=== PATIENT | female | born 1985 | race Caucasian/White ===

== ENCOUNTER 2019-08-21 10:30 | Emergency (ER) | payer OTHER, SELFPAY ==
--- NOTE | 2019-08-21 10:47 | ED.URI ---
HPI - URI/Sore Throat General Chief Complaint: Upper Respiratory Infection Stated Complaint: cough/sob/chest pain Time Seen by Provider: 08/21/19 10:47 Source: patient and RN notes reviewed History of Present Illness HPI Narrative: Patient is a 34-year-old female that presents the urgent care with complaints of a cough and some intermittent shortness of breath since last Wednesday. Patient states she is developed a green postnasal drainage with rhinorrhea and dry cough. Patient states that originally started out with a sore throat but denies sore throat at this time. Patient denies chest pain. Reports of no fevers, nausea, vomiting. Has been using ibuprofen without much relief. Patient appears slightly anxious. No other acute complaints. No acute distress noted. Patient had a plan of care. Related Data Home Medications Medication Instructions Recorded Confirmed ibuprofen 200 mg PO Q6H PRN 08/21/19 08/21/19 Allergies Allergy/AdvReac Type Severity Reaction Status Date / Time No Known Allergies Allergy Verified 08/21/19 10:55 Review of Systems Review of Systems: Narrative: CONSTITUTIONAL: Denies fever, chills, or sweats. EYES: Denies visual changes, redness, or discharge. ENT: Reports of rhinorrhea, postnasal drainage CARDIOVASCULAR: Denies chest pain, palpitations, or edema. RESPIRATORY: Reports of nonproductive cough with intermittent dyspnea, denies wheezing GASTROINTESTINAL: Denies abdominal pain, nausea, vomiting, or diarrhea. GENITOURINARY: Denies dysuria or hematuria. SKIN: Denies rash or itching. MUSCULOSKELETAL: Denies back pain, joint pain, or myalgia. NEUROLOGIC: Denies headache, numbness, or weakness. PMFSH Family History Family History (Updated 06/01/18 @ 11:05 by DOCTOR UNKNOWN) Sibling Family history of thyroid disease Father Family history of blood dyscrasia Family history of gastrointestinal disorder Family history of liver disease Social History Social History Smoking status: Heavy tobacco smoker Alcohol intake: current Comments At the time of my signature, I reviewed and agree with the nursing past medical, surgical, social, and family history. There is no relevant family history pertinent to the patient complaint. Exam Narrative: Exam Narrative: GENERAL: This is a well-nourished, well-developed patient, in no apparent distress. HEAD: normocephalic, atraumatic. EYES: PERRL. Sclera clear/white. Vision is grossly intact. EARS: External ears normal, auditory canals clear and without drainage, TMs normal without perforation. Hearing grossly intact. NOSE: External nose normal with no obvious nasal discharge, nares without redness, no rhinorrhea. THROAT: Mucous membranes moist, posterior pharynx clear. Moderate postnasal drainage NECK: Neck supple CARDIOVASCULAR: Regular rate and rhythm without murmurs, gallops, or rubs. RESPIRATORY: Clear to auscultation. Breath sounds equal bilaterally. No wheezes, rales, or rhonchi. Cough noted with deep breathing SKIN: warm, intact with no suspicious lesions or rash, good texture and turgor. NEURO: awake, alert, and oriented to person, place and time. There were no obvious focal neurologic abnormalities. EXTREMITIES: No clubbing, cyanosis, or edema. Course Vital Signs Vital signs: Vital Signs Temperature 97.4 F L 08/21/19 10:48 Pulse Rate 95 08/21/19 10:48 Respiratory Rate 20 08/21/19 10:48 Blood Pressure 123/83 08/21/19 10:48 Pulse Oximetry 100 08/21/19 10:48 Temperature 97.4 F L 08/21/19 10:48 Pulse Rate 95 08/21/19 10:48 Respiratory Rate 20 08/21/19 10:48 Blood Pressure 123/83 08/21/19 10:48 Pulse Oximetry 100 08/21/19 10:48 Reviewed MDM - URI/Sore Throat MDM Narrative Medical decision making narrative: Advised the patient to use Claritin and Flonase [id number] for symptom relief. May use Mucinex as needed. Increase water intake and rest. Use humidifier at night. Take Tylenol/ibuprofen
[2019-08-21 10:48] VITALS: BP 123/83; PULSE 95; RESP 20; TEMP 36.3; O2SAT 100
== END 2019-08-21 11:11 | disposition home or self-care (01) ==
PROVIDERS: Emergency Provider Nurse Practitioner Family; PCP Internal Medicine
DX: J06.9 Acute upper respiratory infection, unspecified (principal); F17.200 Nicotine dependence, unspecified, uncomplicated
CPT/HCPCS: 99213; G0463

== ENCOUNTER 2020-04-07 09:55 | Emergency (ER) | payer OTHER, SELFPAY ==
[2020-04-07 10:03] VITALS: BP 126/83; PULSE 99; RESP 16; TEMP 36.5; O2SAT 100
--- NOTE | 2020-04-07 10:19 | ED.SKABFB ---
HPI - Skin/Abscess/Foreign Bdy General Chief complaint: Skin/Abscess/Foreign Body Stated complaint: Possible infection Time Seen by Provider: 04/07/20 10:11 Source: patient and RN notes reviewed Mode of arrival: ambulatory Limitations: no limitations History of Present Illness HPI narrative: Patient presents today with a 3-week history of pruritic rash to the left neck. Patient has been applying Benadryl cream without relief. She does report some mild intermittent pain as well. States she became concerned because her pet was recently diagnosed with hookworms and she was having a discussion with her vet, who told her to come in for evaluation for possible hookworms. Patient denies any additional symptoms. MD complaint: rash Related Data Home Medications Medication Instructions Recorded Confirmed Zyrtec 10 mg PO DAILY 04/07/20 04/07/20 Allergies Allergy/AdvReac Type Severity Reaction Status Date / Time No Known Allergies Allergy Verified 04/07/20 10:02 Review of Systems Review of Systems: Narrative: CONSTITUTIONAL: Denies body aches, fever, chills, or sweats. EYES: Denies visual changes, redness, or discharge. ENT: Denies rhinorrhea, congestion, sore throat, or otalgia. CARDIOVASCULAR: Denies chest pain, palpitations, or edema. RESPIRATORY: Denies cough or dyspnea. GASTROINTESTINAL: Denies abdominal pain, nausea, vomiting, or diarrhea. GENITOURINARY: Denies dysuria or hematuria. SKIN: Denies wounds. + Rash to neck MUSCULOSKELETAL: Denies back pain, joint pain, or myalgia. NEUROLOGIC: Denies headache, numbness, tingling, or weakness. PSYCH: Denies depression or anxiety. PMFSH Family History Family History (Updated 06/01/18 @ 11:05 by DOCTOR UNKNOWN) Sibling Family history of thyroid disease Father Family history of blood dyscrasia Family history of gastrointestinal disorder Family history of liver disease Social History Social History Smoking status: Heavy tobacco smoker Alcohol intake: current Comments At time of signature, I have reviewed and agree with nursing past medical, surgical, social and family history unless otherwise noted. Please see nursing chart for further information. There is no relevant family history pertinent to the presenting complaint Exam Narrative: Exam Narrative: GENERAL: Well-appearing, well-nourished, and in no acute distress. HEAD: Normocephalic, atraumatic. EYES: EOMI. No redness or drainage. Conjunctivae normal. ENT: Mucous membranes pink and moist. NECK: Normal AROM. Supple. No lymphadenopathy. Approx 4x4 cm area with scattered macular papular, scaly lesions, some are faintly pink. No erythema, induration, drainage, fluctuance noted. CHEST: No respiratory distress. Clear to auscultation. HEART: Regular rate and rhythm. EXTREMITIES: Normal range of motion. No edema. SKIN: Warm, dry. Capillary refill normal. Normal skin turgor. NEURO: No focal deficits. Alert and oriented x3. Gait steady. PSYCH: Normal affect. No signs of depression or anxiety. Course Course Emergency Course: Rash possibly resemble some tinea. We will have her treat for tinea infection, but due to exposure to hookworms, will treat with a one-time dose of albendazole. Patient has been instructed to follow-up with her PCP if rash does not resolve. Vital Signs Vital signs: Vital Signs Temperature 97.7 F 04/07/20 10:03 Pulse Rate 99 04/07/20 10:03 Respiratory Rate 16 04/07/20 10:03 Blood Pressure 126/83 04/07/20 10:03 Pulse Oximetry 100 04/07/20 10:03 Temperature 97.7 F 04/07/20 10:03 Pulse Rate 99 04/07/20 10:03 Respiratory Rate 16 04/07/20 10:03 Blood Pressure 126/83 04/07/20 10:03 Pulse Oximetry 100 04/07/20 10:03 Reviewed. Pt has been instructed to follow up with her PCP regarding her elevated blood pressure today. MDM - Skin/Abscess/Foreign Bdy Differential Diagnosis Differential diagnosis: Likely abscess of skin or subcutaneous tiss
== END 2020-04-07 10:35 | disposition home or self-care (01) ==
PROVIDERS: Emergency Provider Nurse Practitioner; PCP Internal Medicine
DX: R21 Rash and other nonspecific skin eruption (principal)
CPT/HCPCS: 99213; G0463

== ENCOUNTER 2021-11-30 12:53 | Emergency (ER) | payer OTHER, SELFPAY ==
[2021-11-30 13:31] VITALS: BP 123/85; PULSE 108; RESP 16; TEMP 36.2; O2SAT 100
--- NOTE | 2021-11-30 14:20 | ED.GENADULT ---
HPI - General Adult General Chief complaint: Dental/Oral Stated complaint: tooth inf Source: patient Mode of arrival: ambulatory Limitations: no limitations History of Present Illness HPI narrative: Patient presents for evaluation of left lower dental pain. She indicates approximately 1 month ago she fractured left lower molar. She did not experience any discomfort at the time so she did not seek medical attention. The last 48 hours she has developed a throbbing pain rated 7 out of 10 in severity in the left lower jaw. She reports left-sided cervical lymphadenopathy. No fever, chills, nausea, vomiting. She took 1 dose of 800 mg Advil without considerable improvement in her pain thereafter. She did not take any further medication as she did not think it would be effective. She is not diabetic. She does smoke about 1 ppd. No additional complaints or concerns. Related Data Allergies Allergy/AdvReac Type Severity Reaction Status Date / Time cephalexin [From Keflex] Allergy Hives Verified 11/30/21 13:29 Review of Systems Review of Systems: CONSTITUTIONAL: Denies fever, chills, or sweats. EYES: Denies visual changes, redness, or discharge. ENT: Reports left lower dental pain, left jaw pain and left cervical lymphadenopathy CARDIOVASCULAR: Denies chest pain, palpitations, or edema. RESPIRATORY: Denies cough or dyspnea. GASTROINTESTINAL: Denies abdominal pain, nausea, vomiting, or diarrhea. GENITOURINARY: Denies dysuria or hematuria. SKIN: Denies rash or itching. MUSCULOSKELETAL: Denies back pain, joint pain, or myalgia. NEUROLOGIC: Denies headache, numbness, dizziness, or weakness. PSYCHIATRIC: Denies anxiety or depression. [facility] Past Medical History Medical History Abnormal Pap smear of cervix (08/11/19) 08/11/2019 Ascus -Hpv Ovarian cyst bleeding Tooth fracture Surgical History Surgical History H/O LEEP (~2000) cervical dysplasia History of ovarian cystectomy (~1998) right oopherectomy Family History Family History Sibling Family history of thyroid disease Father Family history of blood dyscrasia Family history of gastrointestinal disorder Family history of liver disease Social History Social History Smoking packs per day: 1 Smoking cigarettes per day: 20.0 Smoking status: Heavy tobacco smoker Alcohol intake: current Substance use: never Living arrangements: with family Gender identity (if verbalized by the patient): Female Spiritual care concerns: No Exam Narrative: GENERAL: Well-appearing, well-nourished, and in no acute distress. HEAD: Normocephalic, atraumatic. EYES: PERRLA and EOMI. ENT: Nares clear, no rhinorrhea or epistaxis. Mucous membranes moist. Oropharynx without tonsillar hypertrophy exudate or other lesions. Overall poor dentition. Multiple fillings are present. There is a fracture of tooth #19. There is no visible or palpable abscess. No trismus. Bilateral TMs pearly mena nonbulging NECK: Supple. No adenopathy or masses. No carotid bruits or JVD CHEST: Clear to auscultation. No respiratory distress. No wheezes rales or rhonchi HEART: Regular rate and rhythm. No murmur heard. Normal peripheral pulses. ABDOMEN: Soft, nontender, nondistended, normal active bowel sounds. EXTREMITIES: Normal range of motion. No edema. SKIN: Warm, dry, no rash. NEURO: No focal deficits. Alert and oriented x3. PSYCH: Normal mood and affect. Course Course Emergency Course: This is a 36-year-old female who presented with complaints of left lower dental pain. She will continue NSAIDS for pain and will add PCN v k and tylenol with codeine as needed. She plans to call a dentist tomorrow. She should go to ER for intractable pain or decline
== END 2021-11-30 14:25 | disposition home or self-care (01) ==
PROVIDERS: Emergency Provider Nurse Practitioner; PCP Internal Medicine
DX: S02.5XXA Fracture of tooth (traumatic), initial encounter for closed fracture (principal); F17.210 Nicotine dependence, cigarettes, uncomplicated; X58.XXXA Exposure to other specified factors, initial encounter
CPT/HCPCS: 99213; G0463

== ENCOUNTER 2022-06-02 13:22 | Emergency (ER) | payer OTHER, SELFPAY ==
--- NOTE | 2022-06-02 13:24 | ED.URI ---
HPI - URI/Sore Throat General Chief Complaint: Upper Respiratory Infection Stated Complaint: ear pain, cough, congestion Time Seen by Provider: 06/02/22 13:24 Source: patient Mode of arrival: ambulatory Limitations: no limitations History of Present Illness HPI Narrative: Ms Zepeda is a 37-year-old female patient presenting to clinic today with complaints of cough, nasal congestion, and ear pain times 23 days. She reports she has had ongoing cold symptoms over 23 days. She reports she does have headaches, green nasal drainage, nonproductive cough, and bilateral ear pain. She denies any fever or chills MD elicited complaint: cough, rhinorrhea, nasal congestion and other (Ear pain) Related Data Allergies Allergy/AdvReac Type Severity Reaction Status Date / Time cephalexin [From Keflex] Allergy Hives Verified 11/30/21 13:29 Review of Systems Review of Systems: Pertinent positives per HPI. Patient denies any fever, chills, rash, headache, visual changes, dizziness, cough, shortness of breath, chest pain, palpitations, nausea, vomiting, diarrhea, constipation, abdominal pain, or any urinary issues. [facility] Past Medical History Medical History Abnormal Pap smear of cervix (08/11/19) 08/11/2019 Ascus -Hpv Ovarian cyst bleeding Tooth fracture Surgical History Surgical History H/O LEEP (~2000) cervical dysplasia History of ovarian cystectomy (~1998) right oopherectomy Family History Family History Sibling Family history of thyroid disease Father Family history of blood dyscrasia Family history of gastrointestinal disorder Family history of liver disease Social History Social History Smoking packs per day: 1 Smoking cigarettes per day: 20.0 Smoking status: Heavy tobacco smoker Alcohol intake: current Substance use: never Gender identity (if verbalized by the patient): Female Spiritual care concerns: No Comments At the time of my signature, I reviewed and agree with the nursing past medical, surgical, social, and family history. There is no relevant family history pertinent to the patient complaint. Exam Narrative: General: Well-developed, well nourished, in no apparent distress Head: Normocephalic, atraumatic Eyes: Pupils equally round and reactive to light bilaterally, EOM intact, sclera and conjunctive clear, no discharge, lids normal Ears: TMs intact and clear, ear canals clear, no drainage, grossly hearing normal. Nose: Nares patent, green discharge, moderate to severe inflammation, maxillary and frontal sinus tenderness. Mouth: Oral pharynx without lesions or masses, good dentition, MMM. Postnasal drip Neck: Supple, trachea midline, no enlargement of anterior or posterior cervical nodes, no thyroid masses or goiter palpable. Cardio: Regular rate and rhythm, s1 and s2 normal, no murmur appreciated. Resp: Clear to auscultation bilaterally, no rhonchi, rales, wheezing or rubs Course Course Emergency Course: Portions of this record may have been created with voice recognition software. Level of Care: Express Care Visit Vital Signs Vital signs: Vital signs reviewed MDM - URI/Sore Throat MDM Narrative Medical decision making narrative: At the time of visit patient is resting comfortably on the exam table. I suspect patient has acute bacterial rhinosinusitis. Prescription for Augmentin and prednisone was sent to the pharmacy. Supportive measures were discussed with the patient and she voiced understanding of discharge instructions and agrees to treatment plan. Differential Diagnosis Differential diagnosis: Likely upper respiratory infection, otitis media, sinusitis, viral infection, bronchitis, influenza, pharyngitis and other
[2022-06-02 13:31] VITALS: BP 119/89; PULSE 100; RESP 16; TEMP 36.6; O2SAT 99
== END 2022-06-02 13:42 | disposition home or self-care (01) ==
PROVIDERS: Emergency Provider Nurse Practitioner Family; PCP Family Medicine
DX: J01.90 Acute sinusitis, unspecified (principal); F17.219 Nicotine dependence, cigarettes, with unspecified nicotine-induced disorders
CPT/HCPCS: 99213; G0463

== ENCOUNTER 2022-09-11 16:33 | Emergency (ER) | payer OTHER, SELFPAY ==
[2022-09-11 16:53] VITALS: BP 115/89; PULSE 92; RESP 16; TEMP 36.4; O2SAT 100
--- NOTE | 2022-09-11 17:12 | ED.URI ---
HPI - URI/Sore Throat General Chief Complaint: Upper Respiratory Infection Stated Complaint: SORE THROAT Time Seen by Provider: 09/11/22 17:12 Source: patient, RN notes reviewed and old records reviewed Mode of arrival: ambulatory Limitations: no limitations History of Present Illness HPI Narrative: 37 year old female who presents to express care with complaints of sore throat, red blisters in throat, headache, nasal congestion and drainage since yesterday.Patient reports that she has not had any fevers. Patient reports that her son is also ill with sore throat and to be seen also today. Patient reports that she has been taking Zyrtec and also some Ibuprofen for her symptoms. MD elicited complaint: sore throat, rhinorrhea and nasal congestion Onset (ago): day(s) (1) Pain scale (0-10): 2 Treatments prior to arrival: ibuprofen Related Data Home Medications Medication Instructions Recorded Confirmed cetirizine 10 mg tablet (Zyrtec) 10 mg PO DAILY 09/11/22 09/11/22 Allergies Allergy/AdvReac Type Severity Reaction Status Date / Time cephalexin [From Keflex] Allergy Intermediate Hives Verified 09/11/22 16:47 Review of Systems Review of Systems: CONSTITUTIONAL: Denies malaise, chills, sweats, or fever. EYES: Denies visual changes, redness, or discharge. ENT: Reports rhinorrhea, congestion,no sinus pain,no otalgia, positive for sore throat. CARDIOVASCULAR: Denies chest pain, palpitations, or edema. RESPIRATORY: Reports no cough.? Denies dyspnea. GASTROINTESTINAL: Denies abdominal pain, nausea, vomiting, diarrhea SKIN: Denies rash or itching. MUSCULOSKELETAL: Denies myalgia. NEUROLOGIC:Reports headache. All systems reviewed & are unremarkable except as noted in HPI and below PMFSH Past Medical History Medical History Abnormal Pap smear of cervix (08/11/19) 08/11/2019 Ascus -Hpv Ovarian cyst bleeding Tooth fracture Surgical History Surgical History H/O LEEP (~2000) cervical dysplasia History of ovarian cystectomy (~1998) right oopherectomy Family History Family History Sibling Family history of thyroid disease Father Family history of blood dyscrasia Family history of gastrointestinal disorder Family history of liver disease Social History Social History Smoking packs per day: 0.5 Smoking cigarettes per day: 10.0 Smoking status: Current some day smoker Alcohol intake: current Substance use: never Living arrangements: with family Gender identity (if verbalized by the patient): Female Spiritual care concerns: No Comments At time of signature, agree with nursing past medical, surgical, social and family history. There is no relevant family history pertinent to the presenting complaint Exam Narrative: GENERAL: Well-appearing, well-nourished, and in no acute distress. HEAD: Normocephalic EYES: PERRLA, conjunctivae clear ENT: Nares clear, turbinates edematous and erythematous, clear discharge. Mucous membranes moist. TM pearly mena with dull light reflex bilaterally; no tragal tenderness. Oropharynx erythematous without lesions. Tonsils not enlarged and without exudate,throat bright red in appearance and states painful, no drooling, no hoarseness, no trismus, uvula midline. reports painful swallowing. NECK: Supple. lymphadenopathy CHEST: Clear to auscultation, breath sounds equal. No wheezing, rhonchi, rales, or stridor. No respiratory distress, speaks in full sentences.SAO2 100% on room air HEART: Regular rate and rhythm. No murmur heard. SKIN: Warm, dry, no rash. NEURO: Alert and oriented x3. PSYCH: Normal mood and affect Course Course Emergency Course: Patient is aware of diagnosis, understands and agrees to treatment plan.?
== END 2022-09-11 17:37 | disposition home or self-care (01) ==
PROVIDERS: Emergency Provider Registered Nurse; PCP Family Medicine
DX: J06.9 Acute upper respiratory infection, unspecified (principal); J02.9 Acute pharyngitis, unspecified; Z20.818 Contact with and (suspected) exposure to other bacterial communicable diseases; F17.210 Nicotine dependence, cigarettes, uncomplicated
CPT/HCPCS: 87081; 87880; 99213; G0463

== ENCOUNTER 2022-10-13 12:35 | Emergency (ER) | payer OTHER, SELFPAY ==
--- NOTE | 2022-10-13 12:45 | ED.URI ---
HPI - URI/Sore Throat General Chief Complaint: Upper Respiratory Infection Stated Complaint: sore throat Source: patient and RN notes reviewed History of Present Illness HPI Narrative: 27-year-old male presents urgent care with complaints of a sore throat since last night. 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 Patient denies any fevers, chills, ear pain, abdominal pain, or cough. Some parts of this dictation were generated by voice recognition software and may contain typographical and/or grammatical inaccuracies. Related Data Home Medications Medication Instructions Recorded Confirmed cetirizine 10 mg tablet (Zyrtec) 10 mg PO DAILY 09/11/22 09/11/22 Allergies Allergy/AdvReac Type Severity Reaction Status Date / Time cephalexin [From Keflex] Allergy Intermediate Hives Verified 09/11/22 16:47 Review of Systems Review of Systems: Pertinent positives and pertinent negatives per HPI. PMFSH Past Medical History Medical History Abnormal Pap smear of cervix (08/11/19) 08/11/2019 Ascus -Hpv Ovarian cyst bleeding Tooth fracture Surgical History Surgical History H/O LEEP (~2000) cervical dysplasia History of ovarian cystectomy (~1998) right oopherectomy Family History Family History Sibling Family history of thyroid disease Father Family history of blood dyscrasia Family history of gastrointestinal disorder Family history of liver disease Social History Social History Smoking packs per day: 0.5 Smoking cigarettes per day: 10.0 Smoking status: Current some day smoker Alcohol intake: current Substance use: never Living arrangements: with family Gender identity (if verbalized by the patient): Female Spiritual care concerns: No Comments At the time of my signature, I reviewed and agree with the nursing past medical, surgical, social, and family history. There is no relevant family history pertinent to the patient complaint. Exam Narrative: GENERAL: This is a well-nourished, well-developed patient, in no apparent distress. HEAD: normocephalic, atraumatic. EYES: PERRL. Sclera clear/white. Vision is grossly intact. EARS: External ears normal, auditory canals clear and without drainage, TMs normal without perforation. Hearing grossly intact. NOSE: External nose normal with no obvious nasal discharge, nares without redness, no rhinorrhea. THROAT: Mucous membranes moist, posterior pharynx clear. NECK: Neck supple, non-tender without lymphadenopathy, masses or thyromegaly. CARDIOVASCULAR: Regular rate RESPIRATORY: no respiratory distress SKIN: warm, intact with no suspicious lesions or rash, good texture and turgor. NEURO: awake, alert, and oriented to person, place and time. There were no obvious focal neurologic abnormalities. Course Course Level of Care: Express Care Visit Vital Signs Vital signs: reviewed MDM - URI/Sore Throat MDM Narrative Medical decision making narrative: Rapid strep is negative in the office; however we will send to the lab for confirmation; there is a small percentage chance that it can come back positive; if it is, we will call you in 2-3days; and your prescription will be call in to your pharmacy. However, there is NO indication for antibiotic at this time. -Increase your fluids and Vitamin C. -Oral rinses such as: Salt water gargles and/or may use topical anesthetic (eg. Chloraseptic spray) or lozenges to relieve dryness or throat pain. -Take tylenol and ibuprofen as needed for pain and fever as directed. 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 -Follow up with primary care provider in 2-3 days if condition is not improving
[2022-10-13 13:34] VITALS: BP 114/91; PULSE 96; RESP 16; TEMP 36.6; O2SAT 99
== END 2022-10-13 13:05 | disposition home or self-care (01) ==
PROVIDERS: Emergency Provider Nurse Practitioner Family; PCP Family Medicine
DX: J02.9 Acute pharyngitis, unspecified (principal); F17.210 Nicotine dependence, cigarettes, uncomplicated
CPT/HCPCS: 87081; 87880; 99213; G0463

== ENCOUNTER 2023-07-02 13:30 | Emergency (ER) | payer OTHER, SELFPAY ==
[2023-07-02 13:36] VITALS: BP 122/85; PULSE 89; RESP 16; TEMP 36.8; O2SAT 99
--- NOTE | 2023-07-02 13:41 | ED.URI ---
HPI - URI/Sore Throat General Chief Complaint: Upper Respiratory Infection Stated Complaint: Sinus Problems Time Seen by Provider: 07/02/23 13:45 Source: patient and RN notes reviewed Mode of arrival: ambulatory Limitations: no limitations History of Present Illness HPI Narrative: 38-year-old female presents with concern for right ear pain, sinus pain, dental pain on the right side. She reports her symptoms started yesterday. She denies nasal drainage, sore throat, fever, aches, chills, sweats. Reports 4 days ago she was standing kitchen cabinet senna and closed space and did notice and discolored nasal drainage the next day. MD elicited complaint: sinus pain and other (Ear pain) Related Data Allergies Allergy/AdvReac Type Severity Reaction Status Date / Time cephalexin [From Keflex] Allergy Intermediate Hives Verified 03/22/23 10:07 Review of Systems Review of Systems: CONSTITUTIONAL: Denies malaise, chills, sweats, or fever. EYES: Denies visual changes, redness, or discharge. ENT: Denies rhinorrhea and sore throat. Reports right-sided sinus pain, nasal congestion, right-sided dental pain, right ear pain CARDIOVASCULAR: Denies chest pain, palpitations, or edema. RESPIRATORY: Denies cough. Denies dyspnea. GASTROINTESTINAL: Denies abdominal pain, nausea, vomiting, diarrhea SKIN: Denies rash or itching. MUSCULOSKELETAL: Denies myalgia. NEUROLOGIC: Denies headache. All systems reviewed & are unremarkable except as noted in HPI and below PMFSH Past Medical History Medical History Abnormal Pap smear of cervix (08/11/19) 08/11/2019 Ascus -Hpv Ovarian cyst bleeding Tooth fracture Surgical History Surgical History H/O LEEP (~2000) cervical dysplasia History of ovarian cystectomy (~1998) right oopherectomy Family History Family History Sibling Family history of thyroid disease Father Family history of blood dyscrasia Family history of gastrointestinal disorder Family history of liver disease Social History Social History Smoking packs per day: 0.5 Smoking cigarettes per day: 10.0 Smoking status: Current some day smoker Alcohol intake: current Alcohol use details: socially Substance use: never Lack of Transportation: YES Lack of Food: Never True Current Housing: I Have Housing Concerned About Future Housing: No Difficulty Paying Gas/Electric Bills: No Difficulty Paying for Meds: No Currently Unemployed: No Education: Associate Degree Difficulty w/ Childcare or Family Care: No Living arrangements: with family Gender identity (if verbalized by the patient): Female Spiritual care concerns: No Comments At time of signature, agree with nursing past medical, surgical, social and family history. There is no relevant family history pertinent to the presenting complaint Exam Narrative: GENERAL: Well-appearing, well-nourished, and in no acute distress. HEAD: Normocephalic EYES: PERRLA, conjunctivae clear ENT: Nares clear, turbinates edematous and erythematous, right sinus tenderness. Mucous membranes moist. Right TM pearly mena with dull light reflex, left TM with sharp reflex; no tragal tenderness. Oropharynx not erythematous without lesions. Tonsils not enlarged and without exudate, no drooling, no hoarseness, no trismus, uvula midline. NECK: Supple. No lymphadenopathy CHEST: Clear to auscultation, breath sounds equal. No wheezing, rhonchi, rales, or stridor. No respiratory distress, speaks in full sentences. HEART: Regular rate and rhythm. No murmur heard. SKIN: Warm, dry, no rash. NEURO: Alert and oriented x3. PSYCH: Normal mood and affect Course Course Emergency Course: Patient is aware of diagnosis, understands and agrees to treat
== END 2023-07-02 13:58 | disposition home or self-care (01) ==
PROVIDERS: Emergency Provider Nurse Practitioner; PCP Emergency Medicine
DX: J32.9 Chronic sinusitis, unspecified (principal); F17.210 Nicotine dependence, cigarettes, uncomplicated
CPT/HCPCS: 99213; G0463

== ENCOUNTER 2023-07-23 12:24 | Emergency (ER) | payer OTHER, SELFPAY ==
[2023-07-23 12:35] VITALS: BP 122/95; PULSE 99; RESP 16; TEMP 36.6; O2SAT 98
--- NOTE | 2023-07-23 12:46 | ED.GENADULT ---
HPI - General Adult General Chief complaint: Upper Respiratory Infection Stated complaint: Cough;Fever Time Seen by Provider: 07/23/23 12:46 Source: patient, RN notes reviewed and old records reviewed Mode of arrival: ambulatory Limitations: no limitations History of Present Illness HPI narrative: 38-year-old female presents to the [facility] with complaints of cough, congestion, fever for 12 days Patient's medical records indicates that she was treated 21 days ago with clindamycin and Medrol Dosepak Patient reports frontal head pain, cough, chest congestion. States all of her kids are sick, so cornetist yesterday was diagnosed with a sinus infection. Reports taking Robitussin Benadryl. Related Data Allergies Allergy/AdvReac Type Severity Reaction Status Date / Time cephalexin [From Keflex] Allergy Intermediate Hives Verified 07/23/23 12:57 Review of Systems Review of Systems: All systems reviewed & are unremarkable except as noted in HPI and below Constitutional: Constitutional: Reports no additional constitutional complaints Eyes: Eyes: Reports no additional eye complaints ENT: Reports as per HPI Cardiovascular: Cardiovascular: Reports no additional cardiovascular complaints, Denies chest pain and Denies dyspnea Respiratory: Respiratory: Reports as per HPI, Reports chest congestion, Reports cough and Denies dyspnea Gastrointestinal: Gastrointestinal: Reports no additional gastrointestinal complaints, Denies abdominal pain, Denies nausea and Denies vomiting Musculoskeletal: Musculoskeletal: Reports no additional musculoskeletal complaints Integumentary/Breasts: Skin/Breast: Reports system reviewed and no additional complaints, except as docu Neurologic: Reports system reviewed and no additional complaints, except as documented Psychiatric: Psychiatric: Reports no additional psychiatric complaints Allergic/Immunologic: Allergic/Immunologic: Reports no additional allergic/immunologic complaints [facility] Past Medical History Medical History Abnormal Pap smear of cervix (08/11/19) 08/11/2019 Ascus -Hpv Ovarian cyst bleeding Tooth fracture Surgical History Surgical History H/O LEEP (~2000) cervical dysplasia History of ovarian cystectomy (~1998) right oopherectomy Family History Family History Sibling Family history of thyroid disease Father Family history of blood dyscrasia Family history of gastrointestinal disorder Family history of liver disease Social History Social History Smoking packs per day: 0.5 Smoking cigarettes per day: 10.0 Smoking status: Current some day smoker Alcohol intake: current Alcohol use details: socially Substance use: never Lack of Transportation: YES Lack of Food: Never True Current Housing: I Have Housing Concerned About Future Housing: No Difficulty Paying Gas/Electric Bills: No Difficulty Paying for Meds: No Currently Unemployed: No Education: Associate Degree Difficulty w/ Childcare or Family Care: No Living arrangements: with family Gender identity (if verbalized by the patient): Female Spiritual care concerns: No Comments At the time of my signature, I reviewed and agree with the nursing past medical, surgical, social, and family history. There is no relevant family history pertinent to the patient complaint. Exam Const: General: cooperative, healthy appearing, comfortable, no acute distress, well developed, alert and well nourished Nutritional Appearance: well nourished Orientation/consciousness: patient oriented x3 Limitations: no limitations HENMT: Head: normal to inspection Ears: hearing grossly normal bilaterally, external ears normal, TM's normal bilaterally, EAC's normal, mastoids normal
== END 2023-07-23 13:14 | disposition home or self-care (01) ==
PROVIDERS: Emergency Provider Nurse Practitioner; PCP Emergency Medicine
DX: J40 Bronchitis, not specified as acute or chronic (principal); J01.90 Acute sinusitis, unspecified; F17.210 Nicotine dependence, cigarettes, uncomplicated
CPT/HCPCS: 99213; G0463

== ENCOUNTER 2023-11-17 16:53 | Emergency (ER) | payer OTHER, SELFPAY ==
--- NOTE | 2023-11-17 17:00 | ED.URI ---
HPI - URI/Sore Throat General Chief Complaint: Upper Respiratory Infection Stated Complaint: SORE THROAT Time Seen by Provider: 11/17/23 17:35 Source: patient and RN notes reviewed Mode of arrival: ambulatory Limitations: no limitations History of Present Illness HPI Narrative: 38-year-old female presents with concern for sore throat that started today. She reports her children has similar symptoms. She denies fever, aches, chills, sweats. MD elicited complaint: sore throat Related Data Allergies Allergy/AdvReac Type Severity Reaction Status Date / Time cephalexin [From Keflex] Allergy Intermediate Hives Verified 11/17/23 17:05 Review of Systems Review of Systems: CONSTITUTIONAL: Denies malaise, chills, sweats, or fever. EYES: Denies visual changes, redness, or discharge. ENT: Denies rhinorrhea, congestion, sinus pain, otalgia. Reports sore throat. CARDIOVASCULAR: Denies chest pain, palpitations, or edema. RESPIRATORY: Denies cough. Denies dyspnea. GASTROINTESTINAL: Denies abdominal pain, nausea, vomiting, diarrhea SKIN: Denies rash or itching. MUSCULOSKELETAL: Denies myalgia. NEUROLOGIC: Denies headache. All systems reviewed & are unremarkable except as noted in HPI and below PMFSH Past Medical History Medical History Abnormal Pap smear of cervix (08/11/19) 08/11/2019 Ascus -Hpv Ovarian cyst bleeding Tooth fracture Surgical History Surgical History H/O LEEP (~2000) cervical dysplasia History of ovarian cystectomy (~1998) right oopherectomy Family History Family History Sibling Family history of thyroid disease Father Family history of blood dyscrasia Family history of gastrointestinal disorder Family history of liver disease Social History Social History Smoking packs per day: 0.5 Smoking cigarettes per day: 10.0 Smoking status: Current some day smoker Alcohol intake: current Alcohol use details: socially Substance use: never Lack of Transportation: YES Lack of Food: Never True Current Housing: I Have Housing Concerned About Future Housing: No Difficulty Paying Gas/Electric Bills: No Difficulty Paying for Meds: No Currently Unemployed: No Education: Associate Degree Difficulty w/ Childcare or Family Care: No Living arrangements: with family Gender identity (if verbalized by the patient): Female Spiritual care concerns: No Comments At time of signature, agree with nursing past medical, surgical, social and family history. There is no relevant family history pertinent to the presenting complaint Exam Narrative: GENERAL: Well-appearing, well-nourished, and in no acute distress. HEAD: Normocephalic EYES: PERRLA, conjunctivae clear ENT: Nares clear, turbinates edematous and erythematous, clear discharge. Mucous membranes moist. TM pearly mena with sharp light reflex bilaterally; no tragal tenderness. Oropharynx not erythematous without lesions. Tonsils not enlarged and without exudate, no drooling, no hoarseness, no trismus, uvula midline. NECK: Supple. No lymphadenopathy CHEST: Clear to auscultation, breath sounds equal. No wheezing, rhonchi, rales, or stridor. No respiratory distress, speaks in full sentences. HEART: Regular rate and rhythm. No murmur heard. SKIN: Warm, dry, no rash. NEURO: Alert and oriented x3. PSYCH: Normal mood and affect Course Course Emergency Course: Patient is aware of diagnosis, understands and agrees to treatment plan. Anticipatory guidance given. Patient agrees to follow-up as directed and is aware of reasons to seek care at the emergency department. Portions of this record may have been created with voice recognition software Level of Care: Express Care Visit Vital Signs Vital signs: R
[2023-11-17 17:29] VITALS: BP 110/76; PULSE 87; RESP 16; TEMP 36.9; O2SAT 97
== END 2023-11-17 17:47 | disposition home or self-care (01) ==
PROVIDERS: Emergency Provider Nurse Practitioner; PCP Emergency Medicine
DX: J02.9 Acute pharyngitis, unspecified (principal); F17.210 Nicotine dependence, cigarettes, uncomplicated; Z20.822 Contact with and (suspected) exposure to COVID-19
CPT/HCPCS: 87081; 87426; 87804; 87880; 99213; G0463

== ENCOUNTER 2024-01-05 12:48 | Outpatient (CLI) | payer OTHER, SELFPAY ==
--- NOTE | ~2024-01-05 | MMUS_ITS ---
EXAMINATION: MM diagnostic thanh BI w anen, US breast RT limited HISTORY: Nipple pain TECHNIQUE: Additional 3-D tomosynthesis images of the breasts were performed and synthetic 2-D images were generated. CAD analysis was submitted and interpreted. High resolution Limited right breast ult rasound was performed. COMPARISON: None BREAST PARENCHYMAL COMPOSITION: Not dense: There are scattered areas of fibroglandular density. FINDINGS: MAMMOGRAPHIC FINDINGS: There is a fat-containing mass in the upper outer quadrant of the right breast, likely complex lipoma or fat necrosis. No mammographic evidence for malignancy in the left breast. ULTRASOUND: Limited right breast ultrasound: At 9:00, 4 cm from the nipple, there is an oval hypoechoic parallel oriented mass without posterior features or internal vascularity measuring about 2.4 cm in length. Th is corresponds to the area of the fat-containing mass seen on mammography. No other masses are identi fied. IMPRESSION: 1. Probable benign mass of the right breast at 9:00, 4 cm from the nipple, likely representing atypic al lipoma or area of fat necrosis. 2. Recommend 6 month follow-up diagnostic right mammogram and ultrasound BI-RADS category 3, probably benign findings. Reviewed, dictated and finalized at location B. IMPRESSION: 1. Probable benign mass of the right breast at 9:00, 4 cm from the nipple, like ly representing atypical lipoma or area of fat necrosis. 2. Recommend 6 month follow-up diagnostic right mammogram and ultrasound BI-RADS category 3, probably benign findings.
== END 2024-01-05 12:49 | disposition home or self-care (01) ==
LOC: ANHIMG 12:49
PROVIDERS: PCP Emergency Medicine; Visit Provider Obstetrics & Gynecology
DX: N64.4 Mastodynia (principal); N64.52 Nipple discharge; R92.8 Other abnormal and inconclusive findings on diagnostic imaging of breast
CPT/HCPCS: 76642; 77062; 77066; G0279

== ENCOUNTER 2024-07-05 09:02 | Emergency (ER) | payer OTHER, SELFPAY ==
--- NOTE | ~2024-07-05 | XR_ITS ---
XR chest 2V Ordering provider: Mary Chase PA-C History: 39 years Female with . cough, sob, CHEST PRESSURE X 2 WEEKS . Comparison: December 08, 2011 FINDINGS: MEDIASTINUM: The cardiac silhouette is not enlarged. LUNGS: No effusions or pneumothorax. Opacification in the left lower lobe suggestive of atelectasis v ersus pneumonia. OTHER: No free air under the diaphragm. IMPRESSION: Left lower lobe pneumonia. Reviewed, dictated and finalized at location A. OPERATOR IMPRESSION: Left lower lobe pneumonia.
[2024-07-05 09:23] VITALS: BP 114/91; PULSE 94; RESP 18; TEMP 36.6; O2SAT 97
[2024-07-05 09:30] VITALS: BP 114/91; PULSE 93; RESP 17; O2SAT 97
[2024-07-05 10:49] LABS: Influenza A QL RT-PCR Negative (Negative); Influenza B QL RT-PCR Negative (Negative); RSV RNA, RT-PCR Negative (Negative); SARS-CoV-2 RNA PCR Negative (Negative)
[2024-07-05 10:59] VITALS: O2SAT 98
[2024-07-05 11:01] VITALS: BP 118/89; PULSE 87; RESP 14; O2SAT 99
[2024-07-05 11:02] LABS: Basophils Absolute Auto 0.1 K/mm3 (0.0-0.1); Basophils Percent Auto 0.5 % (0.2-1.2); Eosinophils Percent Auto 0.3 % (0-4.4); Hematocrit 43.1 % (37.0-47.0); Hemoglobin 14.7 g/dL (12.0-15.0); Immature Granulocyte Absolute 0.05 K/mm3 (0.00-0.031); Immature Granulocyte Percent A 0.4 % (0-0.5); Lymphocytes Absolute Auto 1.62 K/mm3 (0.9-3.2); Mean Corpuscular HGB Conc 34.1 g/dl (32-36); Mean Corpuscular Hemoglobin 32.1 pg (26-34); Mean Corpuscular Volume 94.1 fl (80-100); Mean Platelet Volume 8.6 fl (7.4-10.4); Monocytes Absolute Auto 0.8 K/mm3 (0.1-0.6); Monocytes Percent Auto 6.2 % (2.6-8.5); Neutrophils Absolute Auto 10.9 K/mm3 (1.3-6.7); Neutrophils Percent Auto 80.6 % (45.5-73.1); Platelet Count Result 333 k/mm3 (150-375); Red Blood Count 4.58 M/mm3 (4.2-5.4); Red Cell Distribution Width 12.9 % (11.5-14.5); White Blood Count 13.5 K/mm3 (4.5-10.0)
--- NOTE | 2024-07-05 11:06 | ED.URI ---
HPI - URI/Sore Throat General Chief Complaint: Upper Respiratory Infection Stated Complaint: I've got something going on in my lungs Time Seen by Provider: 07/05/24 09:14 Source: patient Mode of arrival: ambulatory Limitations: no limitations History of Present Illness HPI Narrative: this is a 39-year-old female that presents to the emergency department for cold symptoms. Present over the last 2 weeks. Reports she has had cough and congestion that is not getting better. She is started to feel short of breath when she lies down. Denies fevers. Related Data Allergies Allergy/AdvReac Type Severity Reaction Status Date / Time cephalexin (From Keflex) Allergy Intermediate Hives Verified 07/05/24 10:22 Review of Systems Review of Systems: CONSTITUTIONAL: Denies fever ENT: Reports congestion CARDIOVASCULAR: Denies chest pain, or edema. RESPIRATORY: Reports cough and dyspnea. All systems reviewed & are unremarkable except as noted in HPI and below PMFSH Past Medical History Medical History Abnormal Pap smear of cervix (08/11/19) 08/11/2019 Ascus -Hpv Breast mass, right Discharge from right nipple Ovarian cyst bleeding Screening mammogram, encounter for Tooth fracture Surgical History Surgical History H/O LEEP (~2000) cervical dysplasia History of ovarian cystectomy (~1998) right oopherectomy Family History Family History Sibling Family history of thyroid disease Father Family history of blood dyscrasia Family history of gastrointestinal disorder Family history of liver disease Social History Social History Smoking packs per day: 0.5 Smoking cigarettes per day: 10.0 Smoking status: Current some day smoker Tobacco type: cigarettes Second hand tobacco smoke exposure: Yes Alcohol intake: current Alcohol use details: socially Substance use: never Substance use type: does not use Do You Feel Safe in your Home?: Yes Lack of Transportation: YES Lack of Food: Never True Current Housing: I Have Housing Concerned About Future Housing: No Difficulty Paying Gas/Electric Bills: No Difficulty Paying for Meds: No Currently Unemployed: No Education: Associate Degree Difficulty w/ Childcare or Family Care: No Living arrangements: with family Additional living arrangements comments: single Occupation/Education: occupation 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 HEAD: Normocephalic, atraumatic. EYES: EOMI. ENT: Nares clear, no rhinorrhea or epistaxis. Mucous membranes moist. Oropharynx without tonsillar hypertrophy exudate or other lesions. NECK: Supple. No adenopathy or masses. CHEST: Clear to auscultation. No respiratory distress. No wheezes rales or rhonchi HEART: Regular rate and rhythm. No murmur heard. Normal peripheral pulses. EXTREMITIES: Normal range of motion. No edema. SKIN: Warm, dry, no rash. NEURO: No focal deficits. Alert and oriented x3. PSYCH: Normal mood and affect Course Course Emergency Course: patient updated on workup and agrees with plan of care Vital Signs Vital signs: Vital Signs Temperature 98 F 07/05/24 09:23 Pulse Rate 94 07/05/24 09:23 Respiratory Rate 18 07/05/24 09:23 Blood Pressure 114/91 H 07/05/24 09:23 Pulse Oximetry 97 07/05/24 09:23 Oxygen Delivery Room Air 07/05/24 09:23 Temperature 98 F 07/05/24 09:23 Pulse Rate 90 07/05/24 11:57 Respiratory Rate 18 07/05/24 11:57 Blood Pressure 118/89 07/05/24 11:57 Pulse Oximetry 99 07/05/24 11:57 Oxygen Delivery Room Air 07/05/24 10:59 MDM - URI/Sore Throat MDM Narrative Medical decision making narrative: patient presents to the emergency department for cold symptoms. She is afebrile and nontoxic appearing. Oxygen saturation is normal on room air. Influenza, RSV and COVID screens are negative. Chest x-ray shows left lower lobe pneumonia. Patient will be started on oral antibiotics and was instructed to have close follow-up with primary provider. She was given warnings to return to the ER Differential Diagnosis Differential diagnosis: Likely upper respiratory infection, sinusitis, viral infection, bronchitis, influenza and other ( pneumonia) Lab Data Attestation: I reviewed the patient's lab results. 07/05/24 10:57 07/05/24 10:57 Labs: Lab Results 07/05/24 07/05/24 Range/Units 10:08 10:57 WBC 13.5 H (4.5-10.0) K/mm3 RBC 4.58 (4.2-5.4) M/mm3 Hgb 14.7 (12.0-15.0) g/dL Hct 43.1 (37.0-47.0) % MCV 94.1 (80-100) fl MCH 32.1 (26-34) pg MCHC 34.1 (32-36) g/dl RDW 12.9 (11.5-14.5) % Plt Count 333 (150-375) k/mm3 MPV 8.6 (7.4-10.4) fl Immature Gran % (Auto) 0.4 (0-0.5) % Neut % (Auto) 80.6 H (45.5-73.1) % Lymph % (Auto) 12.0 L (18.3-44.2) % [place] % (Auto) 6.2 (2.6-8.5) % Eos % (Auto) 0.3 (0-4.4) % Baso % (Auto) 0.5 (0.2-1.2) % Lymph # (Auto) 1.62 (0.9-3.2) K/mm3 [place] # (Auto) 0.8 H (0.1-0.6) K/mm3 Eos # (Auto) 0.0 (0-0.3) K/mm3 Baso # (Auto) 0.1 (0.0-0.1) K/mm3 Abs Immat Gran (auto) 0.05 H (0.00-0.031) K/mm3 Absolute Neuts (auto) 10.9 H (1.3-6.7) K/mm3 Absolute Nucleated RBC 0.000 (0.0-0.012) K/mm3 Nucleated RBC % 0.0 (0.0-0.2) % PT 12.8 (11.1-14.7) Seconds INR 0.9 APTT 29.5 (22.3-36.8) Seconds Sodium 138 (137-145) mmol/L Potassium 4.4 (3.4-5.0) mmol/L Chloride 110 H (98-107) mmol/L Carbon Dioxide 26 (22-30) mmol/L Anion Gap 2 L (4-12) mmol/L BUN 9 (7-17) mg/dL Creatinine 0.80 (0.7-1.0) mg/dL Estim Creat Clear Calc 84 ml/min Estimated GFR > 60 (59 - ) Glucose 101 (65-110) mg/dL Calcium 9.6 (8.4-10.2) mg/dL NT-Pro-B Natriuret Pep 36 (19.9-100) pg/mL Influenza A (RT-PCR) Negative (Negative) Influenza B (RT-PCR) Negative (Negative) RSV (RT-PCR) Negative (Negative) SARS-CoV-2 RNA (RT-PCR) Negative (Negative) Imaging Data Radiologist's impression: ITS Impressions Chest X-Ray 07/05/24 09:55 IMPRESSION: Left lower lobe pneumonia. Critical Care Time Critical Care Time Critical Care Time: No Discharge Plan Discharge Clinical Impression: Pneumonia Qualifiers: Pneumonia type: due to unspecified organism Laterality: left Lung location: lower lobe of lung Qualified Code(s): J18.9 - Pneumonia, unspecified organism Patient Disposition: Home, Self-Care Condition: Stable Instructions: Antibiotic Form, Community Acquired Pneumonia (ED) Additional Instructions: Return to the emergency department for worsening symptoms, or any other concerns Remain well-hydrated, get plenty of rest. Take Tylenol or Motrin [id number] for pain as needed. Flonase for nasal congestion. Zyrtec for runny nose. Take oral antibiotics as prescribed. You can take an additional dose of Amoxicillin tonight. Then start 3 times daily tomorrow. Continue Azithromycin tomorrow Follow up with your primary care doctor Patient Language: Korean Prescriptions: New azithromycin 250 mg tablet 250 mg PO DAILY 4 Days Qty: 4 0RF Rx Instructions: start on day 2 of therapy amoxicillin 500 mg capsule 1,000 mg PO Q8H 5 Days Qty: 30 0RF Follow-up/Referrals: Giovanni Hamilton MD [Primary Care Provider] -
[2024-07-05 11:13] LABS: INR 0.9; Prothrombin Time 12.8 Seconds (11.1-14.7)
[2024-07-05 11:14] LABS: Partial Thromboplastin Time 29.5 Seconds (22.3-36.8)
[2024-07-05 11:15] LABS: Anion Gap 2 mmol/L (4-12); Blood Urea Nitrogen 9 mg/dL (7-17); Calcium 9.6 mg/dL (8.4-10.2); Carbon Dioxide 26 mmol/L (22-30); Chloride 110 mmol/L (98-107); Estimated CRCL calculation 84 ml/min; Estimated Glomerular Filt Rate > 60; Glucose 101 mg/dL (65-110); Potassium 4.4 mmol/L (3.4-5.0); Sodium 138 mmol/L (137-145)
[2024-07-05 11:24] LABS: NT Pro B Type Natriuretic Pept 36 pg/mL (19.9-100)
[2024-07-05] MEDS: AMOXICILLIN 500 MG CAPSULE 1000 MG PO (11:55)
[2024-07-05] MEDS: AZITHROMYCIN 250 MG TABLET 500 MG PO (11:55)
[2024-07-05 11:57] VITALS: BP 118/89; PULSE 90; RESP 18; O2SAT 99
--- NOTE | 2024-07-05 11:59 | PC.NURSE ---
Per EDP Mary Chase PA-C no blood cultures needed
[2024-07-05 13:00] VITALS: BP 114/78; PULSE 88; RESP 18; TEMP 36.6; O2SAT 99
== END 2024-07-05 13:01 | disposition home or self-care (01) ==
PROVIDERS: Emergency Provider Physician Assistant; PCP Emergency Medicine
DX: J18.9 Pneumonia, unspecified organism (principal); Z20.822 Contact with and (suspected) exposure to COVID-19; F17.210 Nicotine dependence, cigarettes, uncomplicated
CPT/HCPCS: 36415; 71046; 80048; 83880; 85025; 85610; 85730; 87637; 99283; A9270

== ENCOUNTER 2024-07-07 10:16 | Outpatient (CLI) | payer OTHER, SELFPAY ==
--- NOTE | ~2024-07-07 | MMUS_ITS ---
EXAMINATION: US breast RT limited, MM diagnostic thanh RT w anne HISTORY: Follow-up right breast mass TECHNIQUE: Additional 3-D tomosynthesis images of the right breast were performed and synthetic 2-D i mages were generated. CAD analysis was submitted and interpreted. High resolution Limited right breas t ultrasound was performed. COMPARISON: 01/05/2024 BREAST PARENCHYMAL COMPOSITION: Not dense: There are scattered areas of fibroglandular density. FINDINGS: MAMMOGRAPHIC FINDINGS: Stable fat-containing mass in the upper outer quadrant of the right breast, middle third. No new mass es, calcifications or architectural distortion. ULTRASOUND: Limited right breast ultrasound: No significant interval change to circumscribed parallel oriented hy poechoic right breast mass at 9:00, 4 cm from the nipple measuring 2 x 1.6 x 0.5 cm compared with 2 x 1.8 x 0.5 cm on prior examination. IMPRESSION: 1. Stable likely benign right breast mass. 2. Recommend 6 month follow-up Limited right breast ultrasound and diagnostic bilateral mammogram. BI-RADS category 3, probably benign findings. Reviewed, dictated and finalized at location B. N RESOURCES OPERATIONS DIRECTOR IMPRESSION: 1. Stable likely benign right breast mass. 2. Recommend 6 month follow-up Limited right breast ultrasound and diagnostic b ilateral mammogram. BI-RADS category 3, probably benign findings.
== END 2024-07-07 10:17 | disposition home or self-care (01) ==
LOC: ANHIMG 10:17
PROVIDERS: PCP Emergency Medicine; Visit Provider Obstetrics & Gynecology
DX: R92.8 Other abnormal and inconclusive findings on diagnostic imaging of breast (principal)
CPT/HCPCS: 76642; 77061; 77065; G0279

== ENCOUNTER 2024-10-06 11:30 | Emergency (ER) | payer SELFPAY ==
--- NOTE | 2024-10-06 11:31 | ED.URI ---
HPI - URI/Sore Throat General Chief Complaint: Upper Respiratory Infection Stated Complaint: COUGH/CONGESTION/CHEST Time Seen by Provider: 10/06/24 11:31 Source: patient Mode of arrival: ambulatory Limitations: no limitations History of Present Illness HPI Narrative: Patient is a 39-year-old female who presents with 2 days cough, runny nose and chest congestion. Patient states she has frequent coughing fits. Patient takes Zyrtec daily. Used Flonase on the 1st day. Denies any fever, chills, nausea, vomiting, diarrhea. Related Data Allergies Allergy/AdvReac Type Severity Reaction Status Date / Time cephalexin (From Pongr) Allergy Intermediate Hives Verified 10/06/24 11:39 Review of Systems Review of Systems: All systems reviewed & are unremarkable except as noted in HPI and below Constitutional: Constitutional: Denies chills, Denies fatigue, Denies fever(s), Denies headache(s), Denies malaise and Denies weakness Eyes: Eyes: Denies blurry vision, Denies itchy eyes and Denies loss of vision ENT: Denies otalgia, Denies headache(s), Reports nasal congestion, Denies sinus pain and Denies sore throat Cardiovascular: Cardiovascular: Denies chest pain, Denies irregular heart rhythm and Denies dyspnea Respiratory: Respiratory: Reports cough and Denies dyspnea Gastrointestinal: Gastrointestinal: Denies abdominal pain, Denies diarrhea, Denies nausea and Denies vomiting Musculoskeletal: Musculoskeletal: Denies back pain, Denies myalgias and Denies arthralgias Integumentary/Breasts: Skin/Breast: Denies pruritus and Denies rash Neurologic: Denies headache(s), Denies loss of vision and Denies weakness Psychiatric: Psychiatric: Reports no additional psychiatric complaints Endocrine: Endocrine: Denies fatigue Allergic/Immunologic: Allergic/Immunologic: Denies itchy eyes PMFSH Past Medical History Medical History (Updated 10/06/24 @ 12:06 by Lizette Russo APRN) Exposure to group A Streptococcus Pharyngitis Upper respiratory infection Lipid screening Vaginal candidiasis UTI symptoms Smoker Primary stabbing headache Other microscopic hematuria Irritable bowel syndrome with diarrhea Epigastric pain Common wart Acute midline thoracic back pain Breast mass, right Discharge from right nipple Screening mammogram, encounter for Ovarian cyst Tooth fracture bleeding Abnormal Pap smear of cervix (08/11/19) 08/11/2019 Ascus -Hpv Surgical History Surgical History History of ovarian cystectomy (~1998) right oopherectomy H/O LEEP (~2000) cervical dysplasia Family History Family History Sibling Family history of thyroid disease Father Family history of blood dyscrasia Family history of gastrointestinal disorder Family history of liver disease Social History Social History Smoking packs per day: 0.5 Smoking cigarettes per day: 10.0 Smoking status: Current some day smoker Tobacco type: cigarettes Second hand tobacco smoke exposure: Yes Alcohol intake: current Alcohol use details: socially Substance use: never Substance use type: does not use Do You Feel Safe in your Home?: Yes Lack of Transportation: YES Lack of Food: Never True Current Housing: I Have Housing Concerned About Future Housing: No Difficulty Paying Gas/Electric Bills: No Difficulty Paying for Meds: No Currently Unemployed: No Education: Associate Degree Difficulty w/ Childcare or Family Care: No Living arrangements: with family Additional living arrangements comments: single Occupation/Education: occupation 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 There is no relevant family history pertinent to the presenting complaint. Exam Const: General: cooperative, healthy appearing, comfortable, no acute distress and well nourished Nutritional Appearance: well nourished Orientation/consciousness: patient oriented x3 Limitations: no limitations HENMT: Head: normal to inspection, normocephalic and atraumatic Ears: hearing grossly normal bilaterally, external ears normal, TM's normal bilaterally, EAC's normal and no periauricular adenopathy Face/Nose/Sinus: Normal external nose present, Abnormal mucous membranes and turbinates present erythematous bilateral and diffuse, normal facial exam, sinuses nontender and face symmetric Face and sinus: normal facial exam, sinuses nontender and face symmetric Mouth: Yes Normal oral and palatal mucosa present, Yes lip normal, Yes tongue normal, Yes Normal salivary glands and ducts present, Yes oropharynx normal and Yes moist mucous membranes Teeth and gingiva: dentition normal Throat: posterior oropharynx normal, tonsils normal and uvula midline Eyes: General: appearance normal, both eyes and all related structures Alignment and Position: alignment normal and position normal Periorbital: periorbital findings normal Eyelids: eyelids normal Pupils: Equal, round and reactive pupils present Neck: Neck: normal visual inspection, full ROM, no lymphadenopathy and supple Chest: Chest palpation & inspection: normal inspection of the chest and normal palpation of entire chest wall Resp: Effort & Inspection: normal respiratory effort, able to speak in complete sentences and Actively coughing actively coughing Auscultation: clear to auscultation bilaterally, no crackles, no rales, no rhonchi and no wheezes Cardio: Rate: regular rate Rhythm: regular rhythm Heart sounds: S1 normal heart sound present and S2 normal heart sound present GI: Inspection: normal to inspection Skin: General skin exam: normal color and no rashes or lesions noted Neuro: General: patient oriented x3 and moves all extremities Cranial nerves: Yes Equal, round and reactive pupils present Speech: normal speech Gait exam (Neuro): Normal gait present Extrem: General: normal to inspection, full ROM and no edema Psych: Appearance: grossly normal and well kempt Mental Status: mental status grossly normal Speech and movement: Normal speech and movement present Affect: normal affect Attitude: cooperative Thought process: Normal thought process present Course Course Emergency Course: Discharge instructions reviewed with patient, as well as provided in writing per nursing staff. The instructions also include specific and strict return/GO TO THE ER as well as f/u information. All questions have been answered, and the patient deny any further questions with discharge and discharge plan. Portions of this record may have been created with voice recognition software Level of Care: Express Care Visit Vital Signs Vital signs: Vital Signs Oxygen Delivery Room Air 10/06/24 11:40 Temperature 36.9 C 10/06/24 11:43 Pulse Rate 97 10/06/24 11:43 Respiratory Rate 18 10/06/24 11:43 Blood Pressure 126/89 10/06/24 11:43 Pulse Oximetry 100 10/06/24 11:43 Oxygen Delivery Room Air 10/06/24 11:40 Reviewed MDM - URI/Sore Throat MDM Narrative Medical decision making narrative: Pt well hydrated appearing, in no respiratory distress, hemodynamically stable. Recommend supportive care. The patient is stable at time of discharge the clinical impression was discussed and the patient was given the opportunity to ask questions, which were addressed as completely as possible given the information available at present. Anticipatory guidance and return to care precautions were discussed and the importance of primary care follow-up was stressed and encouraged. The patient voiced understanding of the plan, indications to return, and the need for follow-up. Differential diagnosis considered: Bronchitis, Reed virus, strep pharyngitis, allergic rhinitis, upper respiratory tract infection, sinusitis, rhinosinusitis, nasopharyngitis. viral pharyngitis, otitis media, otitis externa, otitis effusion, foreign body, cerumen impaction, viral syndrome, and influenza.? Exam findings show no acute concerns or changes; patient is non-toxic appearing and is in no distress.? Patient is appropriate for outpatient treatment and follow-up.? Medical Records Attestation: I reviewed the patient's medical records. Lab Data Attestation: I reviewed the patient's lab results. Labs: Lab Results 10/06/24 10/06/24 Range/Units 12:03 12:04 POC Influenza A Ag Positive (Negative) POC Influenza B Ag Negative (Negative) POC SARS CoV-2 Ag Negative (Negative) Discharge Plan Discharge Clinical Impression: Influenza Patient Disposition: Home, Self-Care Condition: Stable Instructions: Influenza (ED) Additional Instructions: Were positive for influenza A. Your Covid is negative Your symptoms are due to a viral illness, which is not treated with antibiotics. Viral symptoms can be present for up to a few weeks. -For fever/pain, you may take: Tylenol 650-1000mg by mouth every 4-6 hours. Do not exceed 4000mg in 24 hours. Advil (Ibuprofen) 600 mg by mouth every 6 hours. Do not exceed 2400mg in 24 hours. 8 AM: Tylenol 11 AM: Ibuprofen 2 PM: Tylenol 5 PM: Ibuprofen 8 PM: Tylenol 11 PM: Ibuprofen 2 AM: Tylenol 5 AM: Ibuprofen -Antihistamine medication such as Benadryl/Zyrtec at night and Claritin/Shannan during the day can help improve symptoms. -Use Flonase twice a day for 5 days then daily to help reduce the inflammation and dry up your sinuses. -You can also use Sudafed behind the pharmacy counter(12 or 24 hour). Be sure to drink plenty of water with these medications at least 8 ounces with every dose and it is important to drink 8 to 10 glasses of water per day. Water is a natural decongestant -Eat and drink things that are easy to swallow, like tea or soup, or popsicles. -Oral rinses such as: Salt water gargles and/or may use topical anesthetic (eg. Chloraseptic spray) or lozenges to relieve dryness or throat pain). -Frequent hand washing or hand associate software engineer is one of the best ways to prevent spread of infection. -Using a vaporizer or humidifier at night will also help thin secretions and help with coughing up phlegm. -Follow up with primary care provider in 3-5 days if condition is not improving - For new or worsening symptoms go directly to the nearest ER Patient Language: Mongolian Prescriptions: New benzonatate 100 mg capsule 100 mg PO BID PRN (Reason: cough) Qty: 14 0RF oseltamivir [Tamiflu] 75 mg capsule 75 mg PO Q12H 5 Days Qty: 10 0RF albuterol sulfate 90 mcg/actuation HFA aerosol inhaler 2 puff inhalation QID PRN (Reason: shortness of breath or wheezing) Qty: 6.7 0RF (DME) Aerochamber MV Spacer See Rx Instructions .Route Qty: 1 0RF Rx Instructions: As directed Follow-up/Referrals: Giovanni Hamilton MD [Primary Care Provider] - 3 Days Time of Disposition: 12:06
[2024-10-06 11:43] VITALS: BP 126/89; PULSE 97; RESP 18; TEMP 36.9; O2SAT 100
[2024-10-06 12:05] LABS: EDCOVIDSCREEN Negative (Negative)
[2024-10-06 12:07] LABS: EDINFLUASCREEN Positive (Negative); EDINFLUBSCREEN Negative (Negative)
== END 2024-10-06 12:10 | disposition home or self-care (01) ==
PROVIDERS: Emergency Provider Nurse Practitioner Family; PCP Emergency Medicine
DX: J10.1 Influenza due to other identified influenza virus with other respiratory manifestations (principal); Z20.822 Contact with and (suspected) exposure to COVID-19; F17.210 Nicotine dependence, cigarettes, uncomplicated
CPT/HCPCS: 87426; 87804; 99213; G0463

== ENCOUNTER 2024-12-04 14:53 | Emergency (ER) | payer SELFPAY ==
--- NOTE | 2024-12-04 15:13 | ED.URI ---
HPI - URI/Sore Throat General Chief Complaint: Upper Respiratory Infection Stated Complaint: SORE THROAT Source: patient Mode of arrival: ambulatory Limitations: no limitations History of Present Illness HPI Narrative: Patient is a 39 year old female who presents to the clinic with complaints of a sore throat since this morning. Denies any shortness of breath, fevers, body aches, nausea, vomiting or difficulty swallowing. Related Data Home Medications ?Medication ?Instructions ?Recorded ?Confirmed ?Last Taken ?Type tumeric 12/04/24 Unknown History Allergies Allergy/AdvReac Type Severity Reaction Status Date / Time cephalexin (From Keflex) Allergy Intermediate Hives Verified 12/04/24 15:06 Review of Systems Review of Systems: CONSTITUTIONAL: Denies body aches, fever, chills, or sweats. EYES: Denies visual changes, redness, or discharge. ENT: Reports sore throat. Denies rhinorrhea, congestion, or otalgia. CARDIOVASCULAR: Denies chest pain, palpitations, or edema. RESPIRATORY: Denies dyspnea. GASTROINTESTINAL: Denies abdominal pain, nausea, vomiting, or diarrhea. SKIN: Denies rash NEUROLOGIC: Denies headache All systems reviewed & are unremarkable except as noted in HPI and below PMFSH Past Medical History Medical History (Updated 12/04/24 @ 16:12 by Akosua Hoffman, JOLENE) Leg pain, bilateral Exposure to group A Streptococcus Pharyngitis Upper respiratory infection Lipid screening Vaginal candidiasis UTI symptoms Smoker Primary stabbing headache Other microscopic hematuria Irritable bowel syndrome with diarrhea Epigastric pain Common wart Acute midline thoracic back pain Breast mass, right Discharge from right nipple Screening mammogram, encounter for Ovarian cyst Tooth fracture bleeding Abnormal Pap smear of cervix (08/11/19) 08/11/2019 Ascus -Hpv Surgical History Surgical History History of ovarian cystectomy (~1998) right oopherectomy H/O LEEP (~2000) cervical dysplasia Family History Family History Sibling Family history of thyroid disease Father Family history of blood dyscrasia Family history of gastrointestinal disorder Family history of liver disease Social History Social History (Updated 10/25/24 @ 08:12 by Sol Donis MA) Smoking packs per day: 0.5 Smoking cigarettes per day: 10.0 Smoking status: Current some day smoker Tobacco type: cigarettes Second hand tobacco smoke exposure: Yes Alcohol intake: current Alcohol use details: socially Substance use: never Substance use type: does not use Do You Feel Safe in your Home?: Yes Lack of Transportation: YES Lack of Food: Never True Current Housing: I Have Housing Concerned About Future Housing: No Difficulty Paying Gas/Electric Bills: No Difficulty Paying for Meds: No Currently Unemployed: No Education: Decline to Answer Difficulty w/ Childcare or Family Care: No Living arrangements: with family Additional living arrangements comments: single Occupation/Education: occupation 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 Please see nursing chart for further information. There is no relevant family history pertinent to the presenting complaint. Exam Narrative: GENERAL: Ill-appearing, ?no acute distress. EYES: ?Conjunctivae clear ENT: Mucous membranes moist. TM pearly mena with normal light reflex bilaterally; no tragal tenderness. Oropharynx erythematous without lesions. Tonsils enlarged and without exudate. No drooling, no hoarseness, no trismus, uvula midline. No tripod positioning, hot potato voice, or soft palate swelling. NECK: Supple. No lymphadenopathy CHEST: Clear to auscultation, breath sounds equal. ?No respiratory distress, speaks in full sentences. HEART: Regular rate and rhythm. No murmur heard. SKIN: Warm, dry, no rash. NEURO: Alert and oriented x3.? Course Course Level of Care: Express Care Visit MDM - URI/Sore Throat MDM Narrative Medical decision making narrative: Discussed physical exam findings. Advised supportive measures and signs/symptoms to go to the ER. Pt is appropriate for outpatient treatment and follow up. Differential Diagnosis Differential diagnosis: Likely upper respiratory infection, viral infection, pharyngitis and other (strep throat) Critical Care Time Critical Care Time Critical Care Time: No Discharge Plan Discharge Clinical Impression: Upper respiratory infection Qualifiers: URI type: unspecified URI Qualified Code(s): J06.9 - Acute upper respiratory infection, unspecified Patient Disposition: Home Condition: Stable Instructions: Upper Respiratory Infection (DC) Additional Instructions: Rapid strep swab was negative today You will be notified in a few days if the culture comes back positive for strep, and appropriate antibiotics will be called in at that time. if symptoms are due to a viral illness, it is not treated with antibiotics. Viral symptoms can be present for up to 10-14 days. Recommendations: Flonase spray and Zyrtec for sinus congestion Tylenol every 8 hours as needed for pain/fever Soft foods, cool liquids, warm tea. Gargle with warm saltwater twice a day. Chloraseptic spray and throat lozenges. Rest and stay hydrated. --Follow up with your PCP --Go to the ER immediately if you cannot swallow your saliva, trouble breathing/wheezing, throat swelling, pain is persistent and severe Patient Language: Sinhala Prescriptions: No Action (DME) Aerochamber MV Spacer See Rx Instructions .Route Qty: 1 0RF Rx Instructions: As directed tumeric Follow-up/Referrals: Giovanni Hamilton MD [Primary Care Provider] - Time of Disposition: 15:31
[2024-12-04 15:17] VITALS: BP 119/80; PULSE 98; RESP 16; TEMP 36.4; O2SAT 97
[2024-12-04 15:26] LABS: EDSTREPNEGPOS1 Negative (Negative)
== END 2024-12-04 15:42 | disposition home or self-care (01) ==
PROVIDERS: PCP Emergency Medicine
DX: J06.9 Acute upper respiratory infection, unspecified (principal); F17.210 Nicotine dependence, cigarettes, uncomplicated
CPT/HCPCS: 87081; 87880; 99213; G0463

== ENCOUNTER 2025-02-13 13:25 | Outpatient (CLI) | payer MEDICAID, SELFPAY ==
--- NOTE | ~2025-02-13 | MMUS_ITS ---
EXAMINATION: MM diagnostic thanh BI w anne, US breast RT limited INDICATION: 39-year old female; BI-RADS 3, short-term follow-up probably benign right breast mass and annual follow-up left breast. COMPARISON: 07/07/2024 and 01/05/2024 TECHNIQUE: Digital breast tomosynthesis True lateral CC and MLO views of BILATERAL breasts were obta ined with computer-aided detection to assist in interpretation of the study. Targeted right breast ul trasound completed. MAMMOGRAM FINDINGS: There are scattered areas of fibroglandular density. Circumscribed fat containing mass in the outer central right breast is reidentified and has remained unchanged in the interval. There are no other suspicious masses, calcifications, architectural distor tion or other abnormality in either breast. RIGHT BREAST ULTRASOUND FINDINGS: A 1.6 x 2.0 x 0.5 cm circumscribed hypoechoic mass at 9:00 location 4 cm from the nipple in the RIGHT breast is reidentified and Unchanged. IMPRESSION: Probably benign right breast mass has demonstrated 12 months stability since the initial evaluation o n 01/05/2024. RECOMMENDATION: 12 month follow-up bilateral diagnostic mammogram and right breast ultrasound. BI-RADS 3, PROBABLY BENIGN Reviewed, dictated and finalized at location B. IMPRESSION: Probably benign right breast mass has demonstrated 12 months stability since th e initial evaluation on 01/05/2024. RECOMMENDATION: 12 month follow-up bilateral diagnostic mammogram and right breast ultrasound. BI-RADS 3, PROBABLY BENIGN
--- OUTSIDE RECORDS SUMMARY | 2025-02-13 13:28 | XMS_ITS | Clinical Summary ---
Author Organization [facility] Address [address], [facility] [address] [place] [address] Phone Care Team Providers Care Microbiology Technician Name Role Phone Giovanni Larsen MD Unavailable [phone] Allergies No known active allergies Medications No known medications Active Problems No known active problems Immunizations Immunization Administration Dates Next Due Covid-19, Mrna, Lnp-s, Pf, 3 0 Mcg/0.3 Ml Dose ([employer]) 10/19/2020,09/24/2020 DTP Vaccine 07/12/1984,1983,1983 Hepatitis B Vaccine 01/01/2005 Influenza Vaccine, Quadrivalent, PF 05/22/2021 Influenza, Recombinant, Quadrivalent,injectable, Pf 05/15/2020 Influenza, Seasonal, Injectable, Undefined 06/02 OPV 07/12/1984,1983,1983 TD VACCINE 01/01/2005 TDAP Vaccine 07/24/2015 Family History Medical History Relation Name Comments Hemachromatosis Father High Cholesterol Father Osteoporosis Mother Relation Name Status Comments Father Alive Mother Alive Social History Tobacco Use Types Packs/Day Years Used Date Smoking Tobacco: Every Day Cigarettes 1 24.2 Started: 11/19/2000 Smokeless Tobacco: Never Tobacco Cessation:Ready to Q uit: No; Counseling Given: Yes Alcohol Use Standard Drinks/Week Comments Not Currently 0 (1 standard drink = 0.6 oz pur e alcohol) PHQ-2 Answer Date Recorded Total Score - Questions 1-9 0 10/25 Education Answer Date Recorded What is the highest level of school you have completed or the highest degree you have received? Some college, no degree 04/24/2021 Sexually Active Control Partners Comments Yes None Male Comments No Sex and Gender Information Value Date Recorded Sex Assigned at Not on file Legal Sex Female 11:42 PM CDT Gender Identity Not on file Sexual Orientation Not on file Last Filed Vital Signs Vital Sign Reading Time Taken Comments Blood Pressure 130/62 05/22/2021 7:55 AM CDT Pulse 91 05/22/2021 7:55 AM CDT Temperature 36.1 C (97 F) 05/22/2021 7:55 AM CDT Respiratory Rate 16 05/22/2021 7:55 AM CDT Oxygen Saturation 96% 05/22/2021 7:55 AM CDT Inhaled Oxygen Concentration - - Weight 81.5 kg (179 lb 9.6 oz) 05/22/2021 7:55 A M CDT Height 175.3 cm (5' 9) 05/22/2021 7:55 AM CDT Body Mass Index 26.52 05/22/2021 7:55 AM CDT Plan of Treatment Health Maintenance Due Date Last Done Comments Hepatitis C Virus (HCV) Screening 1983 Mammogram 1983 Human Papillomavirus (HPV) Immunization (1 - 3-dose series) 1998 Hepatitis B Immunization (2 of 3 - 19+ 3-dose series) 01/29/2005 01/01/2005 HPV/Cotest 2013 Discussion re Starting/Frequency of Mammograms 2023 Cervical Cancer Screening (CCS) 08/06/2023 Pap Smear 08/06/2023 08/06/2020 SARS-COV-2 Immunization ( season) 2024 05/09/2022, 04/22/2021, 10/19/2020, Additional history exists Influenza Immunization (#1) 03/26/202504/26, 05/22/2021, 05/15/2020, Additional history exists DTaP/Tdap/Td Immunization (6 - Td or Tdap) 07/24/2025 07/24/2015, 01/01/2005, 07/12/1984, Additional history exists Respiratory Syncytial Virus (RSV) Immunization (Adult) (1 - 1-dose 75+ series) 2058 Meningococcal Immunization (ACWY) Aged Out No longer eligible based on patient's age to complete this topic Pneumococcal Immunization Combined Aged Out No longer eligible based on patient's age to complete this topic Rotavirus Immunization Aged Out No lo nger eligible based on patient's age to complete this topic Insurance [place] [id number] [place] Care Teams Microbiology Technician Relationship Specialty Start Date End Date Giovanni Larsen MD [address] [place] [id number] Obstetrics & Gynecology 11/19/20
--- OUTSIDE RECORDS SUMMARY | 2025-02-13 13:28 | XMS_ITS | Clinical Summary ---
Author Organization [facility] Address [address] [place] [address] Care Team Providers Care [place] Adviser Name Role Phone Unavailable Primary Care Provider Unavailabl e Source Comments [facility],non-owned Affiliates and Associated Physician Practices is amultiple site organization consisting of ambulatory clinics and hospital sitesin [place], [place], [place] and [place]. This disclosure is being madepursuant to the Care Everywhere program and may not contain all information available regarding this patient. 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 Gender Identity Not on file Sexual Orientation Not on file Plan of Treatment Health Maintenance Due Date Last Done Comments LIPID TESTING 1983 MAMMOGRAM 1983 HIV SCREENING 1998 HEPATITIS C SCREENING 02/19/2001 DTAP/TDAP/TD VACCINES (1 - Tdap) 2002 HEPATITIS B VACCINE (1 of 3 - 19+ 3-dose series) 2002 HPV VACCINE (1 - 3-dose SCDM series) 2010 COVID-19 VACCINE ( - 2023-2 5 season) 2024 DEPRESSION SCREENING 07/26/2024 INFLUENZA VACCINE (#1) 2025 ZOSTER VACCINE (1 of 2) 2033 HIB VACCINE Aged Out No longer eligi ble based on patient's age to complete this topic MENINGOCOCCAL (Group B) VACC INE SHARED DECISION-MAKING Aged Out No longer eligibl e based on patient's age to complete this topic MENINGOCOCCAL GROUPS A/C/Y/W VACCINE Aged Out No longer eligible b ased on patient's age to complete this topic PNEUMOCOCCAL VACCINE Aged Out No long er eligible based on patient's age to complete this topic
== END 2025-02-13 13:26 | disposition home or self-care (01) ==
PROVIDERS: PCP Emergency Medicine; Visit Provider Obstetrics & Gynecology
DX: N63.10 Unspecified lump in the right breast, unspecified quadrant (principal); R92.8 Other abnormal and inconclusive findings on diagnostic imaging of breast
CPT/HCPCS: 76642; 77062; 77066; G0279

== ENCOUNTER 2025-06-28 12:11 | Emergency (ER) | payer OTHER, SELFPAY ==
--- NOTE | 2025-06-28 12:14 | ED.EAR ---
HPI - Ear Problem General Chief complaint: Ear Stated complaint: JAW/EAR/NECK PAIN Time Seen by Provider: 06/28/25 12:20 Source: patient Mode of arrival: ambulatory Limitations: no limitations History of Present Illness HPI Narrative: Jena is a 40-year-old female patient presenting to the clinic today with complaints of right-sided jaw/neck/ear pain x1 day. She reports most of her pain is to the posterior jaw with opening and closing of her mouth. She does have a history of grinding her teeth. Is concerned that she may have an ear infection. Denies any URI symptoms. No fevers, chills, body aches. Related Data Home Medications ?Medication ?Instructions ?Recorded ?Confirmed ?Last Taken ?Type cetirizine 10 mg capsule (Zyrtec) 10 mg PO DAILY PRN 03/28/25 03/28/25 Unknown History Allergies Allergy/AdvReac Type Severity Reaction Status Date / Time cephalexin (From Keflex) Allergy Intermediate Hives Verified 06/28/25 12:22 [facility] Past Medical History Medical History Leg pain, bilateral Exposure to group A Streptococcus Pharyngitis Upper respiratory infection Lipid screening Vaginal candidiasis UTI symptoms Smoker Primary stabbing headache Other microscopic hematuria Irritable bowel syndrome with diarrhea Epigastric pain Common wart Acute midline thoracic back pain Breast mass, right Discharge from right nipple Screening mammogram, encounter for Ovarian cyst Tooth fracture bleeding Abnormal Pap smear of cervix (08/11/19) 08/11/2019 Ascus -Hpv Surgical History Surgical History History of ovarian cystectomy (~1998) right oopherectomy H/O LEEP (~2000) cervical dysplasia Family History Family History Sibling Family history of thyroid disease Father Family history of blood dyscrasia Family history of gastrointestinal disorder Family history of liver disease Social History Social History (Updated 03/28/25 @ 14:24 by KODI Harrell) Smoking packs per day: 0.5 Smoking cigarettes per day: 10.0 Smoking status: Current some day smoker Tobacco type: cigarettes Second hand tobacco smoke exposure: Yes Alcohol intake: current Alcohol use details: socially Substance use: never Substance use type: does not use Lack of Transportation: YES Lack of Food: Never True Current Housing: I Have Housing Concerned About Future Housing: No Difficulty Paying Gas/Electric Bills: No Difficulty Paying for Meds: No Currently Unemployed: No Education: Decline to Answer Difficulty w/ Childcare or Family Care: No Living arrangements: with family Additional living arrangements comments: single Occupation/Education: occupation 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 There is no relevant family history pertinent to the patient complaint. Exam Narrative: General: Well-developed, well nourished, in no apparent distress Head: Normocephalic, atraumatic Eyes: Pupils equally round and reactive to light bilaterally, EOM intact, sclera and conjunctive clear, no discharge, lids normal Ears: TMs intact and clear, ear canals clear, no drainage, grossly hearing normal. Nose: Nares patent, no discharge, no inflammation, no sinus tenderness. Mouth: Oropharynx without lesions or masses, good dentition, MMM. Tenderness to palpation over the posterior right jaw, pain worsened with opening closing over the jaw, no tenderness to palpation over the right lower jaw-teeth Neck: Supple, trachea midline, no enlargement of anterior or posterior cervical nodes, no thyroid masses or goiter palpable. Cardio: Regular rate and rhythm, s1 and s2 normal, no murmur appreciated. Resp: Clear to auscultation bilaterally anteriorly and posteriorly, no rhonchi, rales, wheezing or rubs Course Course Level of Care: Express Care Visit Vital Signs Vital signs: Vital Signs Temperature 36.4 C 06/28/25 12:20 Pulse Rate 83 06/28/25 12:20 Respiratory Rate 16 06/28/25 12:20 Blood Pressure 114/82 06/28/25 12:20 Pulse Oximetry 96 06/28/25 12:20 Temperature 36.4 C 06/28/25 12:20 Pulse Rate 83 06/28/25 12:20 Respiratory Rate 16 06/28/25 12:20 Blood Pressure 114/82 06/28/25 12:20 Pulse Oximetry 96 06/28/25 12:20 MDM MDM Narrative Medical decision making narrative: At the time of visit patient is resting comfortably on the exam table. Patient appears to be nontoxic. complaints of right-sided jaw/neck/ear pain x1 day. She reports most of her pain is to the posterior jaw with opening and closing of her mouth. She does have a history of grinding her teeth. Is concerned that she may have an ear infection. Denies any URI symptoms. No fevers, chills, body aches. On exam patient has bilateral TMs intact and clear, tenderness to palpation over the posterior right jaw, pain worsened with opening closing over the jaw, no tenderness to palpation over the right lower jaw-teeth, no evidence of infection, no nasal drainage, oropharynx normal, lung sounds are clear, heart rates regular rate and rhythm. Plan: I suspect patient has bruxism/right lower jaw pain. No evidence of infection. Recommend taking ibuprofen 3 times daily and using a mouth guard as discussed. Follow-up with dentist/PCP. Supportive measures were discussed with the patient and they voiced understanding discharge instructions and agrees to treatment plan. Return precautions reviewed Differential Diagnosis Differential Diagnosis: TMJ, jaw pain, otitis media, eustachian tube dysfunction, serous otitis, dental infection, pharyngitis, neck strain Discharge Plan Discharge Clinical Impression: Bruxism, Jaw pain Patient Disposition: Home Condition: Stable Instructions: Antibiotic Form, Temporomandibular Disorder (ED) Additional Instructions: No sign of ear infection in the clinic today. I suspect you likely have bruxism that is causing jaw pain. May continue ibuprofen 600 mg every 8 hours as needed for pain May apply cool or warm compress to the area to help alleviate pain May take Tylenol additionally as needed for pain. May wear night mouth guard to help alleviate symptoms Follow-up with PCP/dentist as discussed Patient Language: Peruvian Prescriptions: No Action Zyrtec 10 mg capsule 10 mg PO DAILY PRN Follow-up/Referrals: Giovanni Hamilton MD [Primary Care Provider, Internal Medicine] Time of Disposition: 12:31 Quality NIHSS Nursing Documentation ED NIHSS nursing documentation: reviewed/agree
[2025-06-28 12:20] VITALS: BP 114/82; PULSE 83; RESP 16; TEMP 36.4; O2SAT 96
== END 2025-06-28 12:38 | disposition home or self-care (01) ==
PROVIDERS: Emergency Provider Nurse Practitioner Family; PCP Emergency Medicine
DX: F45.8 Other somatoform disorders (principal); R68.84 Jaw pain; F17.210 Nicotine dependence, cigarettes, uncomplicated
CPT/HCPCS: 99212; G0463